=== PATIENT | female | born 1995 | race Caucasian/White ===

== ENCOUNTER 2017-06-29 16:27 | Emergency (ER) | payer OTHER, BC ==
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
[2017-06-29] MEDS ORDERED: Diphtheria,Pertussis(Acell),Tetanus Vaccine 0.5 ML Syringe IM ONE (17:05)
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
== END 2017-06-29 18:30 | disposition home or self-care (01) ==
LOC: MW.ED 16:27
DX: S50.11XA Contusion of right forearm, initial encounter (principal); S80.02XA Contusion of left knee, initial encounter; S80.01XA Contusion of right knee, initial encounter; N39.0 Urinary tract infection, site not specified; V59.49XA Driver of pick-up truck or van injured in collision with other motor vehicles in traffic accident, initial encounter; Z23 Encounter for immunization
CPT/HCPCS: 73562-26-LT; 73562-26-RT; 73562-LT; 73562-RT; 81001; 81025; 87086; 90471; 90715; 99283; 99284-25

== ENCOUNTER 2018-03-04 22:18 | Emergency (ER) | payer BC, OTHER ==
--- NOTE | 2018-03-04 23:46 | EDM.PDOC ---
ED HPI GENERAL MEDICAL PROBLEM - General Chief Complaint: ENT Problem Stated Complaint: RIGHT EARACHE Time Seen by Provider: 03/04/18 23:38 - History of Present Illness INITIAL COMMENTS - FREE TEXT/NARRATIVE: HISTORY AND PHYSICAL: History of present illness: The patient is a healthy 22-year-old female who was seen at [facility] to clinic 2 days ago and was started on antibiotics, Cefdnir, for a sinus infection and presents with complaints of pain to her right ear. She has not been swimming and there is been no drainage from the ear and she has not had fever chills cough runny nose or sore throat. The patient takes Zyrtec chronically Review of systems: As per history of present illness and below otherwise all systems reviewed and negative. Past medical history: As per history of present illness and as reviewed below otherwise noncontributory. Surgical history: As per history of present illness and as reviewed below otherwise noncontributory. Social history: No reported history of drug or alcohol abuse. Family history: As per history of present illness and as reviewed below otherwise noncontributory. Physical exam: HEENT: Atraumatic, normocephalic, pupils reactive, negative for conjunctival pallor or scleral icterus, mucous membranes moist, throat clear, neck supple, nontender, trachea midline. There is no cervical adenopathy or nuchal rigidity and the TMs are normal bilaterally with some cerumen in the canals bilaterally. There is no mastoid tenderness Lungs: Clear to auscultation, breath sounds equal bilaterally, chest nontender. Heart: S1S2, regular rate and rhythm no overt murmurs Abdomen: Soft, nondistended, nontender. NABS Pelvis: Deferred Genitourinary: Deferred. Rectal: Deferred. Extremities: Atraumatic, negative for cords or calf pain. Neurovascular unremarkable. Neuro: Awake, alert, oriented. Cranial nerves II through XII unremarkable. Cerebellum unremarkable. Motor and sensory unremarkable throughout. Exam nonfocal. Diagnostics: [] Therapeutics: [] Impression: Right otalgia with history of sinus infection Definitive disposition and diagnosis as appropriate pending reevaluation and review of above. right ear Pain Score (Numeric/FACES): 7 - Related Data Allergies Allergy/AdvReac Type Severity Reaction Status Date / Time tree nut Allergy Other Verified 03/04/18 22:38 Home Meds: Home Meds . [No Known Home Meds] 06/29/17 [History] Past Medical History - Past Health History Medical/Surgical History: Denies Medical/Surgical History - Infectious Disease History Infectious Disease History: Reports: Chicken Pox Social & Family History - Family History Family Medical History: Noncontributory - Tobacco Use Smoking Status *Q: Never Smoker - Recreational Drug Use Recreational Drug Use: No ED ROS GENERAL - Review of Systems Review Of Systems: ROS reveals no pertinent complaints other than HPI. ED EXAM, GENERAL - Physical Exam Exam: See Below (See dictation) Course - Vital Signs Last Recorded V/S: Last Vital Signs Temp 36.6 C 03/04/18 22:18 Pulse 89 03/04/18 22:18 Resp 16 03/04/18 22:18 BP 131/83 03/04/18 22:18 Pulse Ox 96 03/04/18 22:18 Departure - Departure Time of Disposition: 23:46 Disposition: Home, Self-Care 01 Condition: Good Clinical Impression: Otalgia of right ear - Discharge Information Referrals: PCP,None [Primary Care Provider] - Additional Instructions: The following information is given to patients seen in the emergency department who are being discharged to home. This information is to outline your options for follow-up care. We provide all patients seen in our emergency department with a follow-up referral. The need for follow-up, as well as the timing and circumstances, are variable depending upon the specifics of your emergency department visit. If you don't have a primary care physician on staff, we will provide you with a referral. We always advise you to contact your personal physician following an emergency department visit to inform them of the circumstance of the visit and for follow-up with them and/or the need for any referrals to a consulting specialist. The emergency department will also refer you to a specialist when appropriate. This referral assures that you have the opportunity for followup care with a specialist. All of these measure are taken in an effort to provide you with optimal care, which includes your followup. Under all circumstances we always encourage you to contact your private physician who remains a resource for coordinating your care. When calling for followup care, please make the office aware that this follow-up is from your recent emergency room visit. If for any reason you are refused follow-up, please contact the [facility] emergency department at and ask to speak to the emergency department charge nurse. FELICITAS [facility]- Internal Medicine and Family [place] [id number] [place] [id number] Discontinue and finished her antibiotics and use [id number] Tylenol or ibuprofen for pain. Follow-up with one of our clinic providers and return to ER as needed and as discussed
== END 2018-03-04 23:50 | disposition home or self-care (01) ==
LOC: MW.ED 22:18
DX: H92.01 Otalgia, right ear (principal); Z91.018 Allergy to other foods
CPT/HCPCS: 99282

== ENCOUNTER 2019-06-15 18:38 | Inpatient (IN) | payer BC, MEDICAID ==
[2019-06-15] MEDS ORDERED: Misoprostol 200 MCG Tab PO PRN (19:02)
[2019-06-15] MEDS ORDERED: Nalbuphine 10 MG/1 ML Vial IVPUSH PRN (19:02)
[2019-06-15] MEDS ORDERED: Sodium Chloride 0.9% 2.5 ML Syringe FLUSH PRN (19:02)
[2019-06-15] MEDS ORDERED: Butorphanol 1 MG/ML SDV IVPUSH PRN (19:02)
[2019-06-15] MEDS ORDERED: Methylergonovine 0.2 MG/1 ML Amp IM PRN (19:02)
[2019-06-15] MEDS ORDERED: Terbutaline 1 MG/ML SDV SUBCUT PRN (19:02)
[2019-06-15] MEDS ORDERED: Sodium Chloride 0.9% 10 ML SDV IV PRN (19:02)
[2019-06-15] MEDS ORDERED: Lidocaine 1% 50 ML MDV INJECT PRN (19:02)
[2019-06-15] MEDS ORDERED: Carboprost Tromethamine 250 MCG/1 ML Amp IM PRN (19:02)
[2019-06-15] MEDS ORDERED: Sodium Chloride 0.9% 10 ML Syringe FLUSH PRN (19:02)
[2019-06-15] MEDS ORDERED: Tranexamic Acid 1,000 MG in Sodium Chloride 0.9% 100 ML IV PRN (19:02)
[2019-06-15] MEDS ORDERED: Water For Irrigation,Sterile 1,000 ML Container IRR PRN (19:02)
[2019-06-15] MEDS ORDERED: Ondansetron 4 MG/2 ML SDV IVPUSH PRN (19:02)
[2019-06-15] MEDS ORDERED: Oxytocin/0.9 % Sodium Chloride 30 UNIT/500 ML BAG IV SCH (19:15)
[2019-06-15] MEDS ORDERED: Ampicillin 2 GM in Sodium Chloride 0.9% 100 ML IV ONE (20:00)
[2019-06-15] MEDS: Lactated Ringers 1,000 ML IV SCH (20:02)
[2019-06-15] MEDS: Misoprostol 25 MCG (1/4 of 100 MCG) Tab VAG PRN (20:03)
[2019-06-16] MEDS: Lactated Ringers 1,000 ML IV SCH ×3 (00:14→11:40)
[2019-06-16] MEDS: Ampicillin 1 GM in Sodium Chloride 0.9% 50 ML IV SCH ×6 (00:14→20:51)
[2019-06-16] MEDS: Misoprostol 25 MCG (1/4 of 100 MCG) Tab VAG PRN ×2 (00:15→04:18)
[2019-06-16] MEDS: Oxytocin/0.9 % Sodium Chloride 30 UNIT/500 ML BAG IV SCH ×2 (08:38→23:28)
--- NOTE | 2019-06-16 11:21 | PCM.PREANE ---
Preanesthetic Assessment - Anesthesia/Transfusion/Family Hx Anesthesia History: No Prior Anesthesia Transfusion History: No Prior Transfusion(s) - Review of Systems General: No Symptoms Pulmonary: No Symptoms Cardiovascular: No Symptoms Gastrointestinal: No Symptoms Neurological: No Symptoms Other: Reports: None - Physical Assessment Height: 5 ft 5 in Weight: 99.337 kg ASA Class: 2 Mental Status: Alert & Oriented x3 Airway Class: Mallampati = 2 Dentition: Reports: Normal Dentition Thyro-Mental Finger Breadths: 3 Mouth Opening Finger Breadths: 3 ROM/Head Extension: Full Lungs: Clear to Auscultation, Normal Respiratory Effort Cardiovascular: Regular Rate, Regular Rhythm - Lab Values: Laboratory Last Values WBC 11.86 K/uL (4.0-11.0) H 06/15/19 19: RBC 4.27 M/uL (4.30-5.90) L 06/15/19 19: Hgb 10.6 g/dL (12.0-16.0) L 06/15/19 19: Hct 34.3 % (36.0-46.0) L 06/15/19 19: MCV 80.3 fL (80.0-98.0) 06/15/19 19: MCH 24.8 pg (27.0-32.0) L 06/15/19 19: MCHC 30.9 g/dL (31.0-37.0) L 06/15/19 19:33 RDW Std Deviation 43.0 fl (28.0-62.0) 06/15/19 19: RDW Coeff of Nate 15 % (11.0-15.0) 06/15/19 19: Plt Count 254 K/uL (150-400) 06/15/19 19: MPV 11.60 fL (7.40-12.00) 06/15/19 19: Nucleated RBC % 0.0 /100WBC 06/15/19 19: Nucleated RBCs # 0 K/uL 06/15/19 19:33 Blood Type A POSITIVE 06/15/19 19: Antibody Screen NEGATIVE 06/15/19 19:33 - Allergies Allergies/Adverse Reactions: Allergies Allergy/AdvReac Type Severity Reaction Status Date / Time tree nut Allergy Anaphylactic Verified 06/15/19 19: Shock - Anesthesia Plan Free Text/Narrative:: Continuous Labor Epidural Pre-Op Medication Ordered: None - Acknowledgements Anesthesia Type Planned: Epidural Pt an Appropriate Candidate for the Planned Anesthesia: Yes Alternatives and Risks of Anesthesia Discussed w Pt/Guardian: Yes Pt/Guardian Understands and Agrees with Anesthesia Plan: Yes PreAnesthesia Questionnaire - Past Health History Medical/Surgical History: Denies Medical/Surgical History HEENT History: Reports: None Cardiovascular History: Reports: None Respiratory History: Reports: None Gastrointestinal History: Reports: None Genitourinary History: Reports: None 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: 0 LMP (Approximate): Musculoskeletal History: Reports: None Neurological History: Reports: None Psychiatric History: Reports: None Endocrine/Metabolic History: Reports: None Hematologic History: Reports: None Immunologic History: Reports: None Oncologic (Cancer) History: Reports: None Dermatologic History: Reports: None - Infectious Disease History Infectious Disease History: Reports: Chicken Pox - Past Surgical History HEENT Surgical History: Reports: Oral Surgery Other HEENT Surgeries/Procedures: wisdom teeth extraction - Past Imaging History Past Imaging History: Reports: None - SUBSTANCE USE Smoking Status *Q: Never Smoker Second Hand Smoke Exposure: No Recreational Drug Use History: No - HOME MEDS Home Medications: Home Meds Fexofenadine [Hermila] 1 tab PO DAILY 06/15/19 [History] Vits96/Iron Fum/Folic [ Tablet] 1 tab PO DAILY 06/15/19 [ History] - CURRENT (IN HOUSE) MEDS Current Meds: Current Medications Butorphanol Tartrate (Stadol) 1 mg IVPUSH Q1H PRN PRN Reason: Pain Carboprost Tromethamine (Hemabate Ds) 250 mcg IM ASDIRECTED PRN PRN Reason: Post Hemorrhage Ampicillin Sodium 1 gm/ Sodium (Chloride) 50 mls @ 100 mls/hr IV Q4H [facility] Last Admin: 06/16/19 08:22 Dose: 100 mls/hr Lactated Ringer's (Ringers, Lactated) 1,000 mls @ 150 mls/hr IV ASDIRECTED [facility] Last Admin: 06/16/19 11:04 Dose: 999 mls/hr Oxytocin/Sodium Chloride (Oxytocin 30 Unit/500 Ml-Ns) 30 unit in 500 mls @ 999 mls/hr IV TITRATE [facility] Oxytocin/Sodium Chloride (Oxytocin 30 Unit/500 Ml-Ns) 30 unit in 500 mls @ 2 mls/hr IV TITRATE [facility]; Protocol Last Titration: 06/16/19 10:07 Dose: 8 munits/min, 8 mls/hr Tranexamic Acid 1,000 mg/ (Sodium Chloride) 110 mls @ 660 mls/hr IV ONETIME PRN PRN Reason: Bleeding Lidocaine HCl (Xylocaine 1%) 50 ml INJECT ONETIME PRN PRN Reason: Laceration repair Methylergonovine Maleate (Methergine) 0.2 mg IM ASDIRECTED PRN PRN Reason: Post Hemorrhage Misoprostol (Cytotec) 200 mcg PO ONETIME PRN PRN Reason: Post Hemorrhage Misoprostol (Cytotec) 25 mcg VAG Q4H PRN PRN Reason: Cervical Ripening Last Admin: 06/16/19 04:18 Dose: 25 mcg Nalbuphine HCl (Nubain) 10 mg IVPUSH Q1H PRN PRN Reason: Pain (severe 7-10) Ondansetron HCl (Zofran) 4 mg IVPUSH Q6H PRN PRN Reason: Nausea/Vomiting Sodium Chloride (Saline Flush) 10 ml FLUSH ASDIRECTED PRN PRN Reason: Keep Vein Open Sodium Chloride (Saline Flush) 2.5 ml FLUSH ASDIRECTED PRN PRN Reason: Keep Vein Open Sodium Chloride (Normal Saline) 10 ml IV ASDIRECTED PRN PRN Reason: IV Use Sterile Water (Sterile Water For Irrigation) 1,000 ml IRR ASDIRECTED PRN PRN Reason: delivery Terbutaline Sulfate (Brethine) 0.25 mg SUBCUT ASDIRECTED PRN PRN Reason: Tacysystole Discontinued Medications Ampicillin Sodium 2 gm/ Sodium (Chloride) 100 mls @ 200 mls/hr IV ONETIME ONE Stop: 06/15/19 20:29 Last Admin: 06/15/19 20:03 Dose: 200 mls/hr Fentanyl/Bupivacaine HCl (Decjzcic-Bhino-Mg 2 Mcg/Ml-0.125%) Confirm Administered Dose 100 mls @ as directed .ROUTE .STK-MED ONE Stop: 06/16/19 10:49
--- NOTE | 2019-06-16 23:27 | PCM.DEL ---
L & D Note - General Info Date of Service: 06/16/19 Mother's Due Date: 06/22/19 - Delivery Note Labor: Induced by Oxytocin Cervical Ripening Method: Misoprostil Delivery Outcome: Livebirth Infant Delivery Method: Spontaneous Vaginal Delivery-Single Presentation: Right Occiput Anterior (STEWART) Nuchal Cord: None Prep: Other Anesthesia Type: Epidural Amniotic Fluid Description: Meconium Stained Episiotomy Type: None Laceration: Vaginal Suture type: Vicryl Suture size: 3-0 Placenta: Intact, Spontaneous Cord: 3 Vessels Resuscitation Needed: No Score 1 min: 8 Score 5 min: 9 Delivery Comments (Free Text/Narrative):: Liveborn female weight 3990 grams. - General Info Date of Service: 06/16/19 - Patient Data Weight - Most Recent: 99.337 kg Med Orders - Current: Current Medications Butorphanol Tartrate (Stadol) 1 mg IVPUSH Q1H PRN PRN Reason: Pain Carboprost Tromethamine (Hemabate Ds) 250 mcg IM ASDIRECTED PRN PRN Reason: Post Hemorrhage Ampicillin Sodium 1 gm/ Sodium (Chloride) 50 mls @ 100 mls/hr IV Q4H [facility] Last Admin: 06/16/19 20:51 Dose: 100 mls/hr Lactated Ringer's (Ringers, Lactated) 1,000 mls @ 150 mls/hr IV ASDIRECTED [facility] Last Admin: 06/16/19 11:40 Dose: 150 mls/hr Oxytocin/Sodium Chloride (Oxytocin 30 Unit/500 Ml-Ns) 30 unit in 500 mls @ 999 mls/hr IV TITRATE [facility] Oxytocin/Sodium Chloride (Oxytocin 30 Unit/500 Ml-Ns) 30 unit in 500 mls @ 2 mls/hr IV TITRATE [facility]; Protocol Last Titration: 06/16/19 17:35 Dose: 20 munits/min, 20 mls/hr Tranexamic Acid 1,000 mg/ (Sodium Chloride) 110 mls @ 660 mls/hr IV ONETIME PRN PRN Reason: Bleeding Lidocaine HCl (Xylocaine 1%) 50 ml INJECT ONETIME PRN PRN Reason: Laceration repair Methylergonovine Maleate (Methergine) 0.2 mg IM ASDIRECTED PRN PRN Reason: Post Hemorrhage Misoprostol (Cytotec) 200 mcg PO ONETIME PRN PRN Reason: Post Hemorrhage Misoprostol (Cytotec) 25 mcg VAG Q4H PRN PRN Reason: Cervical Ripening Last Admin: 06/16/19 04:18 Dose: 25 mcg Nalbuphine HCl (Nubain) 10 mg IVPUSH Q1H PRN PRN Reason: Pain (severe 7-10) Ondansetron HCl (Zofran) 4 mg IVPUSH Q6H PRN PRN Reason: Nausea/Vomiting Sodium Chloride (Saline Flush) 10 ml FLUSH ASDIRECTED PRN PRN Reason: Keep Vein Open Sodium Chloride (Saline Flush) 2.5 ml FLUSH ASDIRECTED PRN PRN Reason: Keep Vein Open Sodium Chloride (Normal Saline) 10 ml IV ASDIRECTED PRN PRN Reason: IV Use Sterile Water (Sterile Water For Irrigation) 1,000 ml IRR ASDIRECTED PRN PRN Reason: delivery Terbutaline Sulfate (Brethine) 0.25 mg SUBCUT ASDIRECTED PRN PRN Reason: Tacysystole Discontinued Medications Ampicillin Sodium 2 gm/ Sodium (Chloride) 100 mls @ 200 mls/hr IV ONETIME ONE Stop: 06/15/19 20:29 Last Admin: 06/15/19 20:03 Dose: 200 mls/hr Fentanyl/Bupivacaine HCl (Wawlkhxo-Acgav-Wc 2 Mcg/Ml-0.125%) Confirm Administered Dose 100 mls @ as directed .ROUTE .STK-MED ONE Stop: 06/16/19 10:49 Last Admin: 06/16/19 12:23 Dose: Not Given Fentanyl/Bupivacaine HCl (Cmolgvmp-Oibmy-Pf 2 Mcg/Ml-0.125%) Confirm Administered Dose 100 mls @ as directed .ROUTE .STK-MED ONE Stop: 06/16/19 17:36 Last Admin: 06/16/19 17:53 Dose: Not Given - Problem List & Annotations (1) Vaginal delivery SNOMED Code(s): 190802230 Code(s): O80 - ENCOUNTER FOR FULL-TERM UNCOMPLICATED DELIVERY Status: Acute Current Visit: Yes - Problem List Review Problem List Initiated/Reviewed/Updated: Yes - My Orders Last 24 Hours: My Active Orders 06/16/19 00:00 Ampicillin 1 gm Sodium Chloride 0.9% [Normal Saline] 50 ml IV Q4H
[2019-06-16] MEDS ORDERED: Acetaminophen 500 MG Tab PO PRN ×2 (23:28)
[2019-06-16] MEDS ORDERED: Ibuprofen 400 MG Tab PO PRN (23:28)
[2019-06-16] MEDS ORDERED: Methylergonovine 0.2 MG/1 ML Amp IM PRN (23:28)
[2019-06-16] MEDS ORDERED: Witch Hazel Medicated Pads 40/Jar TOP PRN (23:28)
[2019-06-16] MEDS ORDERED: Docusate Sodium 100 MG Cap PO PRN (23:28)
[2019-06-16] MEDS ORDERED: Bisacodyl 10 MG Supp RECTAL PRN (23:28)
[2019-06-16] MEDS ORDERED: Ibuprofen 800 MG Tab PO PRN (23:28)
[2019-06-16] MEDS ORDERED: Lanolin 100% Cream 7 GM Tube TOP PRN (23:28)
[2019-06-16] MEDS ORDERED: oxyCODONE 5 MG Tab PO PRN (23:28)
[2019-06-16] MEDS ORDERED: Benzocaine/Menthol 20%-0.5% Spray 78 GM Cannister TOP PRN (23:28)
--- NOTE | 2019-06-17 02:36 | OR ---
SURGEON: Pauly Goddard M.D. DATE OF PROCEDURE: 06/15/2019 PREOPERATIVE DIAGNOSES: 39 and 1/7 weeks' intrauterine with history of polyhydramnios and dysrhythmia. POSTOPERATIVE DIAGNOSES: 39 and 1/7 weeks' intrauterine with history of polyhydramnios and dysrhythmia. PROCEDURES: 1. Cytotec and Pitocin induction of labor. 2. Term spontaneous vaginal delivery. 3. Repair of vaginal laceration. ANESTHESIA: Epidural. ESTIMATED BLOOD LOSS: 400 mL. FINDINGS: Live-born female, score 7 and 9, weighing 3990 g. Placenta spontaneous, Schultze intact with 3 vessels. There was a small vaginal laceration, which was repaired. COMPLICATIONS: None known. DISPOSITION: Mother and baby are in LDR in good condition. BRIEF HISTORY: A 24-year-old female, G1, P0. She presents at 39 weeks' gestation for induction of labor due to polyhydramnios and dysrhythmia. The dysrhythmia has resolved throughout the . She had MFM evaluation including echocardiogram, which was normal. She presents for induction of labor, initially 1 cm and fairly thick. She received 3 doses of Cytotec. Following that, she was 3 cm and 80%. Artificial rupture of membranes was performed. She was group B strep positive and she had multiple doses of antibiotic prior to proceeding with artificial rupture of membranes. She had category 1 heart tones throughout labor. She received an epidural for pain control. An intrauterine pressure catheter was placed due to slow progress beyond 4 to 5 cm. She finally progressed to complete. DESCRIPTION OF PROCEDURE: With the patient in dorsal lithotomy position, the patient pushed for approximately 2-hour time period to a 5+ station. During this time, I was able to manually rotate the head from right occiput posterior to right occiput anterior position, and she continued to push to 5+ station at which time the head was delivered spontaneously and atraumatically over the perineum with support with subsequent delivery of the 's shoulders and body without any difficulty. The was bulb suctioned by nose and mouth and was handed to the mother in the presence of the nurse attending delivery. The infant was a liveborn female, score 7 and 9, weighing 3990 g. The cord was doubly clamped and cut and cord blood was collected for cord ABGs as well as routine cord blood sampling. Pitocin was initiated after delivery of the to assist with delivery of the placenta which was delivered spontaneously. Schultze intact with 3 vessels. Upon inspection of the pelvis and perineum, there were no periurethral, vaginal sidewall, cervical, rectal, or perineal lacerations. There was, however, a vaginal laceration at the 6 o'clock position that was repaired with a running lock suture of 3-0 Vicryl. Final sponge, needle, and instrument counts were correct. There were no known complications. Mother and baby are in LDR in good condition. JESSICA / KRISTEN /[id number]
--- NOTE | 2019-06-17 10:12 | PCM48HPAN ---
Post Anesthesia Note - EVALUATION WITHIN 48HRS OF ANESTHETIC Vital Signs in Normal Range: Yes Patient Participated in Evaluation: Yes Respiratory Function Stable: Yes Airway Patent: Yes Cardiovascular Function Stable: Yes Hydration Status Stable: Yes Pain Control Satisfactory: Yes Nausea and Vomiting Control Satisfactory: Yes Mental Status Recovered: Yes Vital Signs: Last Vital Signs Temp 36.8 C 06/17/19 09:30 Pulse 88 06/17/19 09:30 Resp 18 06/17/19 09:30 BP 110/68 06/17/19 09:30 Pulse Ox 95 06/17/19 09:30 - COMMENTS/OBSERVATIONS Free Text/Narrative:: No complications or concerns related to anesthesia.
--- NOTE | 2019-06-17 12:06 | PCM.PNPP ---
- General Info Date of Service: 06/17/19 Functional Status: Reports: Pain Controlled, Tolerating Diet, Ambulating, Urinating, New Symptoms - Review of Systems General: Reports: No Symptoms HEENT: Reports: No Symptoms Pulmonary: Reports: No Symptoms Cardiovascular: Reports: No Symptoms Gastrointestinal: Reports: No Symptoms Genitourinary: Reports: No Symptoms Musculoskeletal: Reports: No Symptoms Skin: Reports: No Symptoms Neurological: Reports: No Symptoms Psychiatric: Reports: No Symptoms - Patient Data Vital Signs - Most Recent: Last Vital Signs Temp 36.8 C 06/17/19 09:30 Pulse 88 06/17/19 09:30 Resp 18 06/17/19 09:30 BP 110/68 06/17/19 09:30 Pulse Ox 95 06/17/19 09:30 Weight - Most Recent: 99.337 kg Lab Results - Last 24 Hours: Laboratory Results - last 24 hr 06/16/19 06/17/19 Range/Units 23:04 05:40 Hgb 9.4 L (12.0-16.0) g/dL Hct 29.9 L (36.0-46.0) % Cord ABG pH 7.099 L (7.18-7.38) Cord ABG Base Excess -11 L (-10--2) Cord VBG pH 7.223 L (7.25-7.45) Cord VBG Base Excess -10 (-10--2) Med Orders - Current: Current Medications Acetaminophen (Tylenol Extra Strength) 500 mg PO Q4H PRN PRN Reason: Pain Acetaminophen (Tylenol Extra Strength) 1,000 mg PO Q4H PRN PRN Reason: Pain Benzocaine/Menthol (Dermoplast Pain Relief 20%-0.5% [place]) 78 gm TOP ASDIRECTED PRN PRN Reason: Perineal Comfort Measure Bisacodyl (Dulcolax) 10 mg RECTAL ONETIME PRN PRN Reason: Constipation Docusate Sodium (Colace) 100 mg PO BID PRN PRN Reason: Constipation Emollient Ointment (Lansinoh Hpa) 0 gm TOP ASDIRECTED PRN PRN Reason: Sore Nipples Ibuprofen (Motrin) 400 mg PO Q4H PRN PRN Reason: Pain Ibuprofen (Motrin) 800 mg PO Q6H PRN PRN Reason: Pain Methylergonovine Maleate (Methergine) 0.2 mg IM ONETIME PRN PRN Reason: Excessive Vaginal Bleeding Oxycodone HCl (Oxycodone) 5 mg PO Q2H PRN PRN Reason: Pain Witch Suzette (Tucks) 1 pad TOP ASDIRECTED PRN PRN Reason: comfort care Discontinued Medications Butorphanol Tartrate (Stadol) 1 mg IVPUSH Q1H PRN PRN Reason: Pain Carboprost Tromethamine (Hemabate Ds) 250 mcg IM ASDIRECTED PRN PRN Reason: Post Hemorrhage Ampicillin Sodium 2 gm/ Sodium (Chloride) 100 mls @ 200 mls/hr IV ONETIME ONE Stop: 06/15/19 20:29 Last Admin: 06/15/19 20:03 Dose: 200 mls/hr Ampicillin Sodium 1 gm/ Sodium (Chloride) 50 mls @ 100 mls/hr IV Q4H [facility] Last Admin: 06/16/19 20:51 Dose: 100 mls/hr Lactated Ringer's (Ringers, Lactated) 1,000 mls @ 150 mls/hr IV ASDIRECTED ROMAN Last Admin: 06/16/19 11:40 Dose: 150 mls/hr Oxytocin/Sodium Chloride (Oxytocin 30 Unit/500 Ml-Ns) 30 unit in 500 mls @ 999 mls/hr IV TITRATE ROMAN Oxytocin/Sodium Chloride (Oxytocin 30 Unit/500 Ml-Ns) 30 unit in 500 mls @ 2 mls/hr IV TITRATE ROMAN; Protocol Last Admin: 06/16/19 23:28 Dose: 999 munits/min, 999 mls/hr Tranexamic Acid 1,000 mg/ (Sodium Chloride) 110 mls @ 660 mls/hr IV ONETIME PRN PRN Reason: Bleeding Fentanyl/Bupivacaine HCl (Elkjauan-Dpwec-Pl 2 Mcg/Ml-0.125%) Confirm Administered Dose 100 mls @ as directed .ROUTE .STK-MED ONE Stop: 06/16/19 10:49 Last Admin: 06/16/19 12:23 Dose: Not Given Fentanyl/Bupivacaine HCl (Msatryvb-Vkjso-Od 2 Mcg/Ml-0.125%) Confirm Administered Dose 100 mls @ as directed .ROUTE .STK-MED ONE Stop: 06/16/19 17:36 Last Admin: 06/16/19 17:53 Dose: Not Given Lidocaine HCl (Xylocaine 1%) 50 ml INJECT ONETIME PRN PRN Reason: Laceration repair Methylergonovine Maleate (Methergine) 0.2 mg IM ASDIRECTED PRN PRN Reason: Post Hemorrhage Misoprostol (Cytotec) 200 mcg PO ONETIME PRN PRN Reason: Post Hemorrhage Misoprostol (Cytotec) 25 mcg VAG Q4H PRN PRN Reason: Cervical Ripening Last Admin: 06/16/19 04:18 Dose: 25 mcg Nalbuphine HCl (Nubain) 10 mg IVPUSH Q1H PRN PRN Reason: Pain (severe 7-10) Ondansetron HCl (Zofran) 4 mg IVPUSH Q6H PRN PRN Reason: Nausea/Vomiting Sodium Chloride (Saline Flush) 10 ml FLUSH ASDIRECTED PRN PRN Reason: Keep Vein Open Sodium Chloride (Saline Flush) 2.5 ml FLUSH ASDIRECTED PRN PRN Reason: Keep Vein Open Sodium Chloride (Normal Saline) 10 ml IV ASDIRECTED PRN PRN Reason: IV Use Sterile Water (Sterile Water For Irrigation) 1,000 ml IRR ASDIRECTED PRN PRN Reason: delivery Terbutaline Sulfate (Brethine) 0.25 mg SUBCUT ASDIRECTED PRN PRN Reason: Tacysystole - Infant Interaction Disposition, : [place] in Room with Family Interaction: Holding Feeding: Attempted ; Nursed Fair/Poor Support Person: - Recovery Exam Fundal Tone: Firm Fundal Level: 1 Fingerbreadths Below Umbilicus Fundal Placement: Midline Lochia Amount: Scant Lochia Color: Rubra/Red Perineum Description: Edematous Episiotomy/Laceration: Approximated Bladder Status: Voiding - Exam General: Alert, Oriented HEENT: Pupils Equal Lungs: Normal Respiratory Effort GI/Abdominal Exam: Soft, Non-Tender, No Organomegaly, No Distention Extremities: Normal Inspection, Non-Tender. No: No Pedal Edema (1+ bilaterla) Skin: Warm, Dry, Intact Neurological: No New Focal Deficit Psy/Mental Status: Alert, Normal Affect, Normal Mood - Problem List & Annotations (1) Vaginal delivery SNOMED Code(s): 275869273 Code(s): O80 - ENCOUNTER FOR FULL-TERM UNCOMPLICATED DELIVERY Status: Acute Current Visit: Yes - Problem List Review Problem List Initiated/Reviewed/Updated: Yes - My Orders Last 24 Hours: My Active Orders 06/16/19 23:28 Patient Status [ADT] Routine May Shower [RC] ASDIRECTED Up ad [place] [RC] ASDIRECTED Vital Signs [RC] PER UNIT ROUTINE Acetaminophen [Tylenol Extra Strength] 1,000 mg PO Q4H PRN Acetaminophen [Tylenol Extra Strength] 500 mg PO Q4H PRN Benzocaine/Menthol [Dermoplast Pain Relief 20%-0.5% [place]] 78 gm TOP ASDIRECTED PRN Bisacodyl [Dulcolax] 10 mg RECTAL ONETIME PRN Docusate Sodium [Colace] 100 mg PO BID PRN Ibuprofen [Motrin] 400 mg PO Q4H PRN Ibuprofen [Motrin] 800 mg PO Q6H PRN Lanolin [Lansinoh HPA] See Dose Instructions TOP ASDIRECTED PRN Methylergonovine [Methergine] 0.2 mg IM ONETIME PRN Witch Suzette [Tucks] 1 pad TOP ASDIRECTED PRN oxyCODONE 5 mg PO Q2H PRN Assess Lochia [WOMSER] Per Unit Routine Assess Uterine Involution [WOMSER] Per Unit Routine Perineal Care [OM.PC] Per Unit Routine Peripheral IV Discontinue [OM.PC] Routine Resuscitation Status Routine 06/17/19 Breakfast Regular Diet [DIET] - Assessment Assessment:: PPD#1 after , Stable, minimal lochia, working on , baby has not yet voided. - Plan Plan:: Continue care.
--- NOTE | 2019-06-18 08:02 | PCM.PNPP ---
- General Info Date of Service: 06/18/19 Subjective Update: Breast is improved, baby had several wet diapers, patient would like to go home. Functional Status: Reports: Pain Controlled, Tolerating Diet, Ambulating, Urinating - Review of Systems General: Reports: No Symptoms HEENT: Reports: No Symptoms Pulmonary: Reports: No Symptoms Cardiovascular: Reports: No Symptoms Gastrointestinal: Reports: No Symptoms Genitourinary: Reports: No Symptoms Musculoskeletal: Reports: No Symptoms Skin: Reports: No Symptoms Neurological: Reports: No Symptoms Psychiatric: Reports: No Symptoms - General Info Date of Service: 06/18/19 - Patient Data Vital Signs - Most Recent: Last Vital Signs Temp 36.4 C 06/18/19 05:08 Pulse 76 06/18/19 05:08 Resp 16 06/18/19 05:08 BP 116/66 06/18/19 05:08 Pulse Ox 96 06/18/19 05:08 Weight - Most Recent: 99.337 kg Med Orders - Current: Current Medications Acetaminophen (Tylenol Extra Strength) 500 mg PO Q4H PRN PRN Reason: Pain Acetaminophen (Tylenol Extra Strength) 1,000 mg PO Q4H PRN PRN Reason: Pain Benzocaine/Menthol (Dermoplast Pain Relief 20%-0.5% [place]) 78 gm TOP ASDIRECTED PRN PRN Reason: Perineal Comfort Measure Bisacodyl (Dulcolax) 10 mg RECTAL ONETIME PRN PRN Reason: Constipation Docusate Sodium (Colace) 100 mg PO BID PRN PRN Reason: Constipation Emollient Ointment (Lansinoh Hpa) 0 gm TOP ASDIRECTED PRN PRN Reason: Sore Nipples Ibuprofen (Motrin) 400 mg PO Q4H PRN PRN Reason: Pain Ibuprofen (Motrin) 800 mg PO Q6H PRN PRN Reason: Pain Methylergonovine Maleate (Methergine) 0.2 mg IM ONETIME PRN PRN Reason: Excessive Vaginal Bleeding Oxycodone HCl (Oxycodone) 5 mg PO Q2H PRN PRN Reason: Pain Witch Suzette (Tucks) 1 pad TOP ASDIRECTED PRN PRN Reason: comfort care Discontinued Medications Butorphanol Tartrate (Stadol) 1 mg IVPUSH Q1H PRN PRN Reason: Pain Carboprost Tromethamine (Hemabate Ds) 250 mcg IM ASDIRECTED PRN PRN Reason: Post Hemorrhage Ampicillin Sodium 2 gm/ Sodium (Chloride) 100 mls @ 200 mls/hr IV ONETIME ONE Stop: 06/15/19 20:29 Last Admin: 06/15/19 20:03 Dose: 200 mls/hr Ampicillin Sodium 1 gm/ Sodium (Chloride) 50 mls @ 100 mls/hr IV Q4H [facility] Last Admin: 06/16/19 20:51 Dose: 100 mls/hr Lactated Ringer's (Ringers, Lactated) 1,000 mls @ 150 mls/hr IV ASDIRECTED ROMAN Last Admin: 06/16/19 11:40 Dose: 150 mls/hr Oxytocin/Sodium Chloride (Oxytocin 30 Unit/500 Ml-Ns) 30 unit in 500 mls @ 999 mls/hr IV TITRATE ROMAN Oxytocin/Sodium Chloride (Oxytocin 30 Unit/500 Ml-Ns) 30 unit in 500 mls @ 2 mls/hr IV TITRATE ROMAN; Protocol Last Admin: 06/16/19 23:28 Dose: 999 munits/min, 999 mls/hr Tranexamic Acid 1,000 mg/ (Sodium Chloride) 110 mls @ 660 mls/hr IV ONETIME PRN PRN Reason: Bleeding Fentanyl/Bupivacaine HCl (Uhcwfjtw-Ymnor-Gd 2 Mcg/Ml-0.125%) Confirm Administered Dose 100 mls @ as directed .ROUTE .STK-MED ONE Stop: 06/16/19 10:49 Last Admin: 06/16/19 12:23 Dose: Not Given Fentanyl/Bupivacaine HCl (Csbdlusm-Yicjr-Al 2 Mcg/Ml-0.125%) Confirm Administered Dose 100 mls @ as directed .ROUTE .STK-MED ONE Stop: 06/16/19 17:36 Last Admin: 06/16/19 17:53 Dose: Not Given Lidocaine HCl (Xylocaine 1%) 50 ml INJECT ONETIME PRN PRN Reason: Laceration repair Methylergonovine Maleate (Methergine) 0.2 mg IM ASDIRECTED PRN PRN Reason: Post Hemorrhage Misoprostol (Cytotec) 200 mcg PO ONETIME PRN PRN Reason: Post Hemorrhage Misoprostol (Cytotec) 25 mcg VAG Q4H PRN PRN Reason: Cervical Ripening Last Admin: 06/16/19 04:18 Dose: 25 mcg Nalbuphine HCl (Nubain) 10 mg IVPUSH Q1H PRN PRN Reason: Pain (severe 7-10) Ondansetron HCl (Zofran) 4 mg IVPUSH Q6H PRN PRN Reason: Nausea/Vomiting Sodium Chloride (Saline Flush) 10 ml FLUSH ASDIRECTED PRN PRN Reason: Keep Vein Open Sodium Chloride (Saline Flush) 2.5 ml FLUSH ASDIRECTED PRN PRN Reason: Keep Vein Open Sodium Chloride (Normal Saline) 10 ml IV ASDIRECTED PRN PRN Reason: IV Use Sterile Water (Sterile Water For Irrigation) 1,000 ml IRR ASDIRECTED PRN PRN Reason: delivery Terbutaline Sulfate (Brethine) 0.25 mg SUBCUT ASDIRECTED PRN PRN Reason: Tacysystole - Infant Interaction Disposition, : [place] in Room with Family Infant Interaction: Holding Feeding: Attempted ; Nursed Fair/Poor Support Person: - Recovery Exam Fundal Tone: Firm Fundal Level: 2 Fingerbreadths Below Umbilicus Fundal Placement: Midline Lochia Amount: Scant Lochia Color: Rubra/Red Perineum Description: Intact, Minimal Bruising/Swelling Episiotomy/Laceration: None Bladder Status: Voiding Urinary Elimination: Voided - Exam General: Alert, Oriented HEENT: Pupils Equal Neck: Supple Lungs: Normal Respiratory Effort GI/Abdominal Exam: Soft, No Organomegaly, No Distention Extremities: Normal Inspection, Normal Range of Motion, Non-Tender, No Pedal Edema, Normal Capillary Refill Skin: Warm, Dry, Intact Neurological: No New Focal Deficit Psy/Mental Status: Alert, Normal Affect, Normal Mood - Problem List & Annotations (1) Vaginal delivery SNOMED Code(s): 635208555 Code(s): O80 - ENCOUNTER FOR FULL-TERM UNCOMPLICATED DELIVERY Status: Acute Current Visit: Yes - Problem List Review Problem List Initiated/Reviewed/Updated: Yes - My Orders Last 24 Hours: My Active Orders 06/18/19 07:55 Ready for Discharge [RC] PER UNIT ROUTINE - Assessment Assessment:: PPD#2 after , Stable, minimal lochia, is improved, would like to be discharged - Plan Plan:: Discharge to home. Discharge instructions reviewed.
== END 2019-06-18 13:20 | disposition home or self-care (01) | DRG 560 ==
LOC: MW.OB 18:38 → OBSVTOIN 06-16 23:02 → MW.OB 06-17 02:19
PROVIDERS: ADMIT Obstetrics & Gynecology; ATTEND Obstetrics & Gynecology
PROC: 10E0XZZ Delivery of Products of Conception, External Approach (ICD-10-PCS; principal; 2019-06-16)
PROC: 3E0R3BZ Introduction of Anesthetic Agent into Spinal Canal, Percutaneous Approach (ICD-10-PCS; 2019-06-16)
PROC: 00HU33Z Insertion of Infusion Device into Spinal Canal, Percutaneous Approach (ICD-10-PCS; 2019-06-16)
PROC: 3E033VJ Introduction of Other Hormone into Peripheral Vein, Percutaneous Approach (ICD-10-PCS; 2019-06-16)
PROC: 10907ZC Drainage of Amniotic Fluid, Therapeutic from Products of Conception, Via Natural or Artificial Opening (ICD-10-PCS; 2019-06-16)
PROC: 10H07YZ Insertion of Other Device into Products of Conception, Via Natural or Artificial Opening (ICD-10-PCS; 2019-06-16)
PROC: 0HQ9XZZ Repair Perineum Skin, External Approach (ICD-10-PCS; 2019-06-16)
DX: O99.824 Streptococcus B carrier state complicating childbirth (principal); O40.3XX0 Polyhydramnios, third trimester, not applicable or unspecified; O70.0 First degree perineal laceration during delivery; Z37.0 Single live birth; Z3A.39 39 weeks gestation of pregnancy
CPT/HCPCS: 01967; 36415; 51702; 59025; 59409; 82803; 85014; 85018; 85027; 86850; 86900; 86901; A9270-GY; J0290; J2590; J7030; J7050; J7120

== ENCOUNTER 2021-11-11 05:01 | Inpatient (IN) | payer BC ==
[2021-11-11] MEDS ORDERED: Carboprost Tromethamine 250 MCG/1 ML Amp IM PRN (05:06)
[2021-11-11] MEDS ORDERED: Lidocaine 1% 50 ML MDV INJECT PRN (05:06)
[2021-11-11] MEDS ORDERED: Ampicillin 2 GM in Sodium Chloride 0.9% 100 ML IV ONE (05:06)
[2021-11-11] MEDS ORDERED: Sodium Chloride 0.9% 10 ML Syringe FLUSH PRN (05:06)
[2021-11-11] MEDS ORDERED: Butorphanol 1 MG/ML SDV IVPUSH PRN (05:06)
[2021-11-11] MEDS ORDERED: Tranexamic Acid 1,000 MG in Sodium Chloride 0.9% 100 ML IV PRN ×2 (05:06→18:05)
[2021-11-11] MEDS ORDERED: Ondansetron 4 MG/2 ML SDV IVPUSH PRN (05:06)
[2021-11-11] MEDS ORDERED: Methylergonovine 0.2 MG/1 ML Amp IM PRN (05:06)
[2021-11-11] MEDS ORDERED: Sodium Chloride 0.9% 20 ML SDV IV PRN (05:06)
[2021-11-11] MEDS ORDERED: Misoprostol 200 MCG Tab PO PRN (05:06)
[2021-11-11] MEDS ORDERED: Sodium Chloride 0.9% 2.5 ML Syringe FLUSH PRN (05:06)
[2021-11-11] MEDS ORDERED: Water For Irrigation,Sterile 1,000 ML Container IRR PRN (05:06)
[2021-11-11] MEDS ORDERED: Terbutaline 1 MG/ML SDV SUBCUT PRN (05:06)
[2021-11-11] MEDS ORDERED: Oxytocin/0.9 % Sodium Chloride 30 UNIT/500 ML BAG IV SCH ×2 (05:15)
[2021-11-11] MEDS: Lactated Ringers 1,000 ML IV SCH ×3 (05:43→15:19)
[2021-11-11] MEDS: Ampicillin 1 GM in Sodium Chloride 0.9% 50 ML IV SCH ×2 (10:24→14:15)
[2021-11-11 13:28] LABS: BLOOD UREA NITROGEN,BUN 6 mg/dL (7.0-18.0); CHLORIDE,CL 104 mmol/L (98-107); GLUCOSE RANDOM 96 mg/dL (74-106); POTASSIUM,K 4.4 mmol/L (3.5-5.1); SODIUM,NA 136 mmol/L (136-145)
[2021-11-11] MEDS ORDERED: Ropivacaine 100 ML ONE (14:46)
[2021-11-11] MEDS ORDERED: Bupivacaine 0.25% 10 ML SDV ONE (14:46)
[2021-11-11] MEDS ORDERED: ePHEDrine 50 MG/ML SDV IVPUSH PRN ×2 (15:32)
[2021-11-11] MEDS ORDERED: Ropivacaine 200 MG in Premix Bag 1 BAG EPIDUR SCH (15:45)
[2021-11-11] MEDS ORDERED: Witch Hazel Medicated Pads 40/Jar TOP PRN (18:05)
[2021-11-11] MEDS ORDERED: Ibuprofen 400 MG Tab PO PRN (18:05)
[2021-11-11] MEDS ORDERED: Docusate Sodium 100 MG Cap PO PRN (18:05)
[2021-11-11] MEDS ORDERED: Lanolin 100% Cream 7 GM Tube TOP PRN (18:05)
[2021-11-11] MEDS ORDERED: Benzocaine/Menthol 20%-0.5% Spray 78 GM Cannister TOP PRN (18:05)
[2021-11-11] MEDS ORDERED: Bisacodyl 10 MG Supp RECTAL PRN (18:05)
[2021-11-11] MEDS ORDERED: Acetaminophen 500 MG Tab PO PRN ×2 (18:05)
[2021-11-11] MEDS: Ibuprofen 800 MG Tab PO PRN (19:18)
[2021-11-12] MEDS: Ibuprofen 800 MG Tab PO PRN (01:26)
[2021-11-12] MEDS ORDERED: Prenatal Multivitamin with Calcium/Folic Acid/Iron Tab PO SCH (09:00)
== END 2021-11-13 17:20 | disposition home or self-care (01) | DRG 560 ==
LOC: MW.OBCHECK 05:01 → MW.OB 05:02 → MW.OBCHECK 05:06 → MW.OB 05:06 → OBSVTOIN 17:43 → MW.OB 22:54
PROVIDERS: ADMIT Obstetrics & Gynecology; ATTEND Obstetrics & Gynecology
PROC: 10E0XZZ Delivery of Products of Conception, External Approach (ICD-10-PCS; principal; 2021-11-11)
PROC: 10907ZC Drainage of Amniotic Fluid, Therapeutic from Products of Conception, Via Natural or Artificial Opening (ICD-10-PCS; 2021-11-11)
PROC: 3E033VJ Introduction of Other Hormone into Peripheral Vein, Percutaneous Approach (ICD-10-PCS; 2021-11-11)
PROC: 3E0R3BZ Introduction of Anesthetic Agent into Spinal Canal, Percutaneous Approach (ICD-10-PCS; 2021-11-11)
PROC: 00HU33Z Insertion of Infusion Device into Spinal Canal, Percutaneous Approach (ICD-10-PCS; 2021-11-11)
DX: O99.824 Streptococcus B carrier state complicating childbirth (principal); Z37.0 Single live birth; O98.52 Other viral diseases complicating childbirth; U07.1 COVID-19; Z3A.39 39 weeks gestation of pregnancy; O99.214 Obesity complicating childbirth
CPT/HCPCS: 01967; 36415; 51702; 59025; 59409; 80053; 82803; 85014; 85018; 85027; 86592; 86850; 86900; 86901; A9270-GY; J0290; J2590; J2795; J3490; J7120; U0002

== ENCOUNTER 2024-05-20 00:49 | Inpatient (IN) | payer BC ==
[2024-05-20] MEDS: Lactated Ringers 1,000 ML IV SCH (10:15)
[2024-05-20] MEDS ORDERED: Tranexamic Acid IN NACL,ISO-OS 1,000 MG in Premix Bag 1 BAG IV PRN (10:20)
[2024-05-20] MEDS ORDERED: Misoprostol 200 MCG Tab PO PRN (10:20)
[2024-05-20] MEDS ORDERED: Sodium Chloride 0.9% 2.5 ML Syringe FLUSH PRN (10:20)
[2024-05-20] MEDS ORDERED: Lidocaine 1% 50 ML MDV INJECT PRN (10:20)
[2024-05-20] MEDS ORDERED: Ondansetron 4 MG/2 ML SDV IVPUSH PRN (10:20)
[2024-05-20] MEDS ORDERED: Water For Irrigation,Sterile 1,000 ML Container IRR PRN (10:20)
[2024-05-20] MEDS ORDERED: Sodium Chloride 0.9% 10 ML Syringe FLUSH PRN (10:20)
[2024-05-20] MEDS ORDERED: Misoprostol 25 MCG (1/4 of 100 MCG) Tab VAG PRN (10:20)
[2024-05-20] MEDS ORDERED: Sodium Chloride 0.9% 20 ML SDV IV PRN (10:20)
[2024-05-20] MEDS ORDERED: Carboprost Tromethamine 250 MCG/1 mL Vial IM PRN (10:20)
[2024-05-20] MEDS ORDERED: Methylergonovine 0.2 MG/1 ML Amp IM PRN (10:20)
[2024-05-20] MEDS ORDERED: Terbutaline 1 MG/ML SDV SUBCUT PRN (10:20)
[2024-05-20] MEDS ORDERED: Oxytocin/0.9 % Sodium Chloride 30 UNIT/500 ML BAG IV SCH (10:30)
[2024-05-20 10:42] LABS: HEMATOCRIT 36.9 % (37.0-47.0); HEMOGLOBIN 12.4 g/dL (12.0-16.0); MEAN CORPUSCULAR HEMOGLOBIN 27.7 pg (28.0-32.0); MEAN CORPUSCULAR HGB CONC 33.6 g/dL (32.0-36.0); MEAN CORPUSCULAR VOLUME 82.6 fL (83.0-99.0); MEAN PLATELET VOLUME 11.8 fL (9.4-12.3); PLATELET COUNT,PLT 214 K/uL (150-400); RED BLOOD CELL COUNT 4.47 M/uL (4.10-5.30); WHITE BLOOD CELL COUNT,WBC 11.85 K/uL (3.9-11.3)
[2024-05-20] MEDS: Ampicillin 2 GM in Sodium Chloride 0.9% 100 ML IV ONE (10:44)
[2024-05-20] MEDS: Misoprostol 25 MCG (1/4 of 100 MCG) Tab VAG PRN (10:54)
[2024-05-20] MEDS: Ampicillin 1 GM in Sodium Chloride 0.9% 50 ML IV SCH (14:50)
[2024-05-20] MEDS: Oxytocin/0.9 % Sodium Chloride 30 UNIT/500 ML BAG IV SCH (14:54)
[2024-05-20] MEDS: Butorphanol 2 MG/ML SDV IVPUSH PRN (18:34)
[2024-05-20] MEDS ORDERED: Bupivacaine 0.5% 10 ML SDV ONE (20:16)
[2024-05-20] MEDS ORDERED: Phenylephrine HCl In 0.9% NaCl 1 MG/10 ML Syringe ONE (20:16)
[2024-05-20] MEDS: Ropivacaine HCl/PF 200 ML ONE (20:40)
[2024-05-20] MEDS ORDERED: Phenylephrine HCl In 0.9% NaCl 1 MG/10 ML Syringe IVPUSH PRN (20:52)
[2024-05-20] MEDS ORDERED: Bupivacaine 0.5% 10 ML SDV INJECT ONE (20:52)
[2024-05-20] MEDS ORDERED: ePHEDrine 50 MG/ML SDV IVPUSH PRN (20:52)
[2024-05-20] MEDS ORDERED: ePHEDrine 50 MG/ML SDV IM PRN (20:52)
[2024-05-20] MEDS ORDERED: dexmedeTOMIDine HCl 200 MCG/2 ML SDV EPIDUR SCH (21:00)
[2024-05-20] MEDS ORDERED: Ropivacaine HCl/PF 400 MG in Premix Bag 1 BAG EPIDUR SCH (21:00)
[2024-05-21] MEDS ORDERED: Tranexamic Acid IN NACL,ISO-OS 1,000 MG in Premix Bag 1 BAG IV PRN (01:17)
[2024-05-21] MEDS ORDERED: Benzocaine/Menthol 20%-0.5% Spray 78 GM Cannister TOP PRN (01:17)
[2024-05-21] MEDS ORDERED: Methylergonovine 0.2 MG/1 ML Amp IM PRN (01:17)
[2024-05-21] MEDS ORDERED: Acetaminophen 500 MG Tab PO PRN (01:17)
[2024-05-21] MEDS ORDERED: Witch Hazel Medicated Pads 40/Jar TOP PRN (01:17)
[2024-05-21 01:37] LABS: PH,UMBILICAL ARTERIAL 7.178 (7.18-7.38); PH,UMBILICAL VENOUS 7.317 (7.25-7.45)
[2024-05-21] MEDS: Docusate Sodium 100 MG Cap PO PRN (08:52)
[2024-05-21] MEDS: Ibuprofen 800 MG Tab PO PRN (08:53)
[2024-05-21] MEDS: Lanolin 100% Cream 7 GM Tube TOP PRN (20:49)
[2024-05-22 05:54] LABS: HEMATOCRIT 36.2 % (37.0-47.0)
== END 2024-05-22 11:55 | disposition home or self-care (01) | DRG 560 ==
LOC: MW.OB 00:49 → UNDOADMOB 09:58 → MW.OB 10:20 → OBSVTOIN 05-21 00:49 → MW.OB 05-21 04:30
PROVIDERS: ADMIT Obstetrics & Gynecology; ATTEND Obstetrics & Gynecology
PROC: 10E0XZZ Delivery of Products of Conception, External Approach (ICD-10-PCS; principal; 2024-05-21)
PROC: 10907ZC Drainage of Amniotic Fluid, Therapeutic from Products of Conception, Via Natural or Artificial Opening (ICD-10-PCS; 2024-05-21)
PROC: 3E033VJ Introduction of Other Hormone into Peripheral Vein, Percutaneous Approach (ICD-10-PCS; 2024-05-21)
DX: O99.214 Obesity complicating childbirth (principal); O99.824 Streptococcus B carrier state complicating childbirth; E66.01 Morbid (severe) obesity due to excess calories; Z37.0 Single live birth; Z3A.38 38 weeks gestation of pregnancy
CPT/HCPCS: 01967; 36415; 51702; 59025; 59409; 82803; 85014; 85018; 85027; 86592; 86850; 86900; 86901; A9270-GY; J0290; J0595; J0665; J2371; J2590; J2795; J3490; J7120